=== PATIENT | female | born 1980 | race Caucasian/White ===

== ENCOUNTER → 2018-04-28 | Outpatient (CLI) | payer BC ==
--- NOTE | 2018-04-28 10:16 | US ---
EXAMINATION TYPE: US transvaginal DATE OF EXAM: 04/28/2018 COMPARISON: NONE CLINICAL HISTORY: N92.1 Metrorrhagia. Irregular menses, hx csections TECHNIQUE: Transvaginal (TV). Date of LMP: 04/22/2018, A1 EXAM MEASUREMENTS: Uterus: 7.9 x 5.1 x 3.7 cm Endometrial Stripe: 0.3 cm Right Ovary: 3.4 x 2.1 x 2.1 cm Left Ovary: 2.3 x 1.5 x 1.1 cm 1. Uterus: Anteverted Slightly heterogenous 2. Endometrium: wnl 3. Right Ovary: multiple follicles 4. Left Ovary: wnl 5. Bilateral Adnexa: wnl 6. Posterior cul-de-sac: no free fluid Cervix- nabothian cysts IMPRESSION: 1. Multiple small right ovarian follicles.
--- NOTE | 2018-04-29 09:58 | MM ---
Reason for exam: screening (asymptomatic). Last mammogram was performed 4 years and 10 months ago. History: Family history of breast cancer in aunt at age 60. Physical Findings: A clinical breast exam by your physician is recommended on an annual basis and results should be correlated with mammographic findings. MG 3D Screening Mammo W/Cad Bilateral CC and MLO view(s) were taken. Prior study comparison: June 15, 2013, mammogram, performed at [facility]. The breast tissue is extremely dense which could obscure a lesion on mammography. There are benign appearing round calcifications bilaterally. There is no discrete abnormality. ASSESSMENT: Incomplete: need additional imaging evaluation, BI-RAD 0 RECOMMENDATION: Ultrasound of the right breast. (palpable by patient) [facility] will attempt to contact patient to return for ultrasound.
== END | disposition home or self-care (01) ==
LOC: RADMAMWWP 09:17
PROVIDERS: ATTEND Obstetrics & Gynecology
DX: Z12.31 Encounter for screening mammogram for malignant neoplasm of breast (principal); N92.1 Excessive and frequent menstruation with irregular cycle
CPT/HCPCS: 76830; 77063; 77067

== ENCOUNTER → 2018-05-07 | Outpatient (CLI) | payer BC ==
--- NOTE | 2018-05-10 07:16 | USB ---
Reason for exam: additional evaluation requested from abnormal screening. History: Family history of breast cancer in aunt at age 60. Physical Findings: Nurse did not find any significant physical abnormalities on exam. US Breast Workup Limited RT Right limited breast ultrasound including focal area of concern, retroareolar and axilla demonstrates a 0.5 x 0.3 x 0.4cm cystic lesion at 9 o'clock and a 0.7 x 0.3 x 0.6cm cystic cluster at 12 o'clock. These results were verbally communicated with the patient and result sheet given to the patient on 05/07/18. ASSESSMENT: Probably benign, BI-RAD 3 RECOMMENDATION: Ultrasound of the right breast in 6 months.
== END | disposition home or self-care (01) ==
LOC: RADUSWWP 15:42
PROVIDERS: ATTEND Obstetrics & Gynecology
DX: R92.8 Other abnormal and inconclusive findings on diagnostic imaging of breast (principal)

== ENCOUNTER → 2018-11-15 | Outpatient (CLI) | payer BC ==
--- NOTE | 2018-11-16 08:38 | USB ---
Reason for exam: follow-up at short interval from prior study. History: Family history of breast cancer in aunt at age 60. Physical Findings: Nurse Summary: bilateral nodularity, prominence right breast 12 o'clock, all soft, movable (nurse ts). US Breast RT Right complete breast ultrasound includes all four quadrants, the retroareolar region and axilla. Finding demonstrates a 7 x 3 x 5mm cystic, benign lesion at 1 o'clock, a 6 x 4 x 4mm cystic cluster at 9 o'clock verus 5 x 4 x 4mm previously, stable to minimally larger, additional follow up can be performed, a 8 x 4 x 6mm oval, mixed lesion at 10 o'clock, possibly complicated cyst, fibroadenoma is also possible, 6 month follow up recommended and a 1.4 x 0.6cm lobulated heterogenous area at 1 o'clock, possible island of fibroglandular tissue, 6 month follow up recommended. These results were verbally communicated with the patient and result sheet given to the patient on 11/15/18. ASSESSMENT: Probably benign, BI-RAD 3 RECOMMENDATION: Follow-up diagnostic mammogram of both breasts in 6 months. Ultrasound of the right breast in 6 months.
== END | disposition home or self-care (01) ==
LOC: RADUSWWP 14:52
PROVIDERS: ATTEND Obstetrics & Gynecology
DX: R92.8 Other abnormal and inconclusive findings on diagnostic imaging of breast (principal)

== ENCOUNTER → 2019-06-03 | Outpatient (CLI) | payer BC ==
--- NOTE | 2019-06-03 10:44 | MM ---
Reason for exam: additional evaluation requested from prior study. Last mammogram was performed 1 year and 1 month ago. History: Family history of breast cancer in aunt at age 60. Physical Findings: Nurse did not find any significant physical abnormalities on exam. MG 3D Diag Mammo W/Cad AMADA Bilateral CC and MLO view(s) were taken. ML, spot compression CC, and spot compression MLO view(s) were taken of the left breast. Prior study comparison: April 28, 2018, bilateral MG 3d screening mammo w/cad. June 15, 2013, mammogram, performed at [facility]. The breast tissue is heterogeneously dense. This may lower the sensitivity of mammography. Focal asymmetry central 12-1 o'clock posterior left breast does not persist on spot 3D views. These results were verbally communicated with the patient and result sheet given to the patient on 06/03/19. ASSESSMENT: Incomplete: need additional imaging evaluation, BI-RAD 0 RECOMMENDATION: Ultrasound of the right breast. (as follow up from previous)
--- NOTE | 2019-06-03 10:47 | USB ---
Reason for exam: follow-up at short interval from prior study. History: Family history of breast cancer in aunt at age 60. US Breast RT Right complete breast ultrasound includes all four quadrants, the retroareolar region and axilla. Finding demonstrates a 8 x 4 x 6mm cystic, benign lesion at 1 o'clock, a 5 x 4 x 5mm oval, hypoechoic lesion with through transmission at 8 o'clock, 1 year follow up recommended, a 6 x 4 x 7mm mixed, stable lesion at 9 o'clock, a 4 x 2 x 4mm cystic lesion at 9 o'clock, possible cluster, stable, 1 year follow up recommended and a 14 x 6mm lobulated, stable lesion at 1 o'clock, stable, possible prominent lobule, 1 year follow up recommended. These results were verbally communicated with the patient and result sheet given to the patient on 06/03/19. ASSESSMENT: Probably benign, BI-RAD 3 RECOMMENDATION: Follow-up diagnostic mammogram of both breasts in 1 year. Ultrasound of the right breast in 1 year.
== END | disposition home or self-care (01) ==
LOC: RADMAMWWP 07:07
PROVIDERS: ATTEND Obstetrics & Gynecology
DX: R92.2 Inconclusive mammogram (principal)
CPT/HCPCS: 77062; 77066

== ENCOUNTER → 2020-01-24 | Outpatient (CLI) | payer BC ==
[2020-01-24 14:14] LABS: Basophils # (A) 0.1 k/uL (0-0.2); Basophils % (A) 1 %; Eosinophils # (A) 0.1 k/uL (0-0.7); Eosinophils % (A) 1 %; HCT 41.3 % (34.0-46.0); HGB 13.6 gm/dL (11.4-16.0); Lymphocytes % (A) 28 %; MCH 29.4 pg (25.0-35.0); MCV 88.8 fL (80.0-100.0); Mean Platelet Volume 7.2; Monocytes # (A) 0.3 k/uL (0-1.0); Monocytes % (A) 5 %; Neutrophils # (A) 4.4 k/uL (1.3-7.7); Neutrophils % (A) 63 %; Platelet Count 217 k/uL (150-450); RBC 4.65 m/uL (3.80-5.40); RDW 12.7 % (11.5-15.5)
[2020-01-24 19:06] LABS: African American GFR (CKD) 91.4 (60.0-200.0); Albumin 4.3 g/dL (3.80-4.90); Albumin/Globulin Ratio 1.95 (1.60-3.17); Anion Gap 7.8 mmol/L (4.00-12.00); BUN/Creat Ratio 15.56 Ratio (12.00-20.00); Calcium 9.6 mg/dL (8.7-10.3); Carbon Dioxide 27.2 mmol/L (21.6-31.8); Globulin 2.2 g/dL (1.6-3.3); Non-African American GFR(CKD) 78.9 (60.0-200.0); Potassium 4.1 mmol/L (3.5-5.5); Total Bilirubin 0.7 mg/dL (0.2-1.2); Total Protein 6.5 g/dL (6.2-8.2)
[2020-01-24 19:13] LABS: T4, Free (Free Thyroxine) 1.1 ng/dL (0.80-1.80)
[2020-01-24 19:18] LABS: Ferritin 15.3 ng/mL (10.0-291.0)
== END | disposition home or self-care (01) ==
LOC: LABWHC1 12:09
PROVIDERS: ATTEND Family Medicine
DX: D89.89 Other specified disorders involving the immune mechanism, not elsewhere classified (principal); E78.5 Hyperlipidemia, unspecified; E72.19 Other disorders of sulfur-bearing amino-acid metabolism; D64.9 Anemia, unspecified; E03.9 Hypothyroidism, unspecified; D50.9 Iron deficiency anemia, unspecified; R74.8 Abnormal levels of other serum enzymes; G62.9 Polyneuropathy, unspecified; E63.0 Essential fatty acid [EFA] deficiency; N28.9 Disorder of kidney and ureter, unspecified
CPT/HCPCS: 36415; 80053; 82306; 82728; 83090; 84439; 84443; 84481; 85025

== ENCOUNTER → 2020-05-18 | Outpatient (CLI) | payer BC ==
--- NOTE | 2020-05-18 10:08 | MM ---
Reason for exam: additional evaluation requested from prior study. Last mammogram was performed 11 months ago. History: Family history of breast cancer in aunt at age 60. Took hormonal contraceptives for 1 year beginning at age 17. Physical Findings: Nurse did not find any significant physical abnormalities on exam. MG 3D Diag Mammo W/Cad AMADA Bilateral CC and MLO view(s) were taken. Prior study comparison: June 03, 2019, bilateral MG 3d diag mammo w/cad AMADA. April 28, 2018, bilateral MG 3d screening mammo w/cad. The breast tissue is extremely dense which could obscure a lesion on mammography. Focal asymmetry upper posterior left breast, stable. No significant new findings when compared with previous films. These results were verbally communicated with the patient and result sheet given to the patient on 05/18/20. ASSESSMENT: Incomplete: need additional imaging evaluation, BI-RAD 0 RECOMMENDATION: Ultrasound of the right breast.
--- NOTE | 2020-05-18 10:12 | USB ---
Reason for exam: additional evaluation requested from abnormal screening. History: Family history of breast cancer in aunt at age 60. Took hormonal contraceptives for 1 year beginning at age 17. US Breast RT Technologist: Selin Ha Right complete breast ultrasound includes all four quadrants, the retroareolar region and axilla. Finding demonstrates a 0.7 x 0.4 x 0.3cm cystic lesion at 1 o'clock, a 0.4 x 0.5 x 0.2cm cystic lesion at 1 o'clock, a 1.5 x 1.3 x 0.8cm lesion at 1 o'clock correlates with prior, stable, a 0.5 x 0.5 x 0.3cm cystic lesion at 8 o'clock, a 0.5 x 0.5 x 0.3cm lesion correlates with prior, stable, a 0.7 x 0.6 x 0.4cm cystic lesion at 9 o'clock and a 0.6 x 0.6 x 0.4cm lesion correlates with prior, stable at 9 o'clock. These results were verbally communicated with the patient and result sheet given to the patient on 05/18/20. ASSESSMENT: Benign, BI-RAD 2 RECOMMENDATION: Routine screening mammogram of both breasts in 1 year. Manage patient on a clinical basis.
== END | disposition home or self-care (01) ==
LOC: RADUSWWP 07:41
PROVIDERS: ATTEND Obstetrics & Gynecology
DX: R92.8 Other abnormal and inconclusive findings on diagnostic imaging of breast (principal)
CPT/HCPCS: 77062; 77066

== ENCOUNTER → 2021-03-27 | Outpatient (CLI) | payer BC ==
--- NOTE | 2021-03-27 08:44 | MM ---
Reason for exam: clinical finding. Last mammogram was performed 10 months ago. History: Family history of breast cancer in aunt at age 60. Took hormonal contraceptives for 1 year beginning at age 17. Indicated problem(s): lump or thickening in the left breast. Physical Findings: Nurse Summary: 2-3cm nodule in the left breast at 1-2 o'clock (nurse db). MG 3D Diag Mammo W/Cad AMADA Bilateral CC and MLO view(s) were taken. Prior study comparison: May 18, 2020, bilateral MG 3d diag mammo w/cad AMADA. June 03, 2019, bilateral MG 3d diag mammo w/cad AMADA. April 28, 2018, bilateral MG 3d screening mammo w/cad. The breast tissue is extremely dense which could obscure a lesion on mammography. Finding: There is a typically benign 26 mm equal density (isodense), circumscribed round mass located 8 cm from the nipple in the upper outer quadrant, posterior position near palpable marker. No significant changes in finding since May 18, 2020, June 03, 2019, and April 28, 2018. These results were verbally communicated with the patient and result sheet given to the patient on 03/27/21. ASSESSMENT: Incomplete: need additional imaging evaluation, BI-RAD 0 RECOMMENDATION: Ultrasound of the left breast.
--- NOTE | 2021-03-27 08:45 | USB ---
Reason for exam: additional evaluation requested from abnormal screening. History: Family history of breast cancer in aunt at age 60. Took hormonal contraceptives for 1 year beginning at age 17. US Breast Limited LT Left limited breast ultrasound including focal area of concern, retroareolar and axilla demonstrates a 1.6 x 1.1 x 0.8cm cystic cluster at 1 o'clock and a 3.2 x 2.8 x 1.8cm cystic lesion at 2 o'clock. These results were verbally communicated with the patient and result sheet given to the patient on 03/27/21. ASSESSMENT: Benign, BI-RAD 2 RECOMMENDATION: Routine screening mammogram of both breasts in 1 year.
== END | disposition home or self-care (01) ==
LOC: RADMAMWWP 07:08
PROVIDERS: ATTEND Obstetrics & Gynecology
DX: R92.2 Inconclusive mammogram (principal); Z80.3 Family history of malignant neoplasm of breast
CPT/HCPCS: 77062; 77066

== ENCOUNTER → 2022-11-11 | Outpatient (CLI) | payer BC | END | disposition home or self-care (01) | LOC: LABWHC1 13:47 | PROVIDERS: ATTEND Family Medicine | DX: R00.2 Palpitations (principal); R00.1 Bradycardia, unspecified | CPT/HCPCS: 93005 ==

== ENCOUNTER → 2022-11-25 | Outpatient (CLI) | payer BC ==
--- NOTE | 2022-12-08 17:08 | P.HOLTER ---
48 hour Holter monitor shows sinus mechanism with normal heart rates No arrhythmias during any of her symptoms
--- NOTE | 2022-12-10 08:52 | HM ---
48 hour Holter monitor shows sinus mechanism with normal heart rates No arrhythmias during any of her symptoms MTDD
== END | disposition home or self-care (01) ==
LOC: RADECHMAIN 12:00
PROVIDERS: ATTEND Family Medicine
DX: R00.2 Palpitations (principal)
CPT/HCPCS: 93225; 93226

== ENCOUNTER → 2023-04-17 | Outpatient (CLI) | payer BC ==
[2023-04-17 15:35] LABS: Basophils # (A) 0.05 X 10*3/uL (0.00-0.10); Basophils % (A) 0.9 %; Eosinophils % (A) 1.9 %; HCT 41.8 % (37.2-46.3); HGB 13.9 g/dL (12.0-15.0); Immature Grans, Automated 0 %; Lymphocytes # (A) 2.01 X 10*3/uL (0.90-5.00); Lymphocytes % (A) 38.1 %; MCH 29.3 pg (27.0-32.0); MCHC 33.3 g/dL (32.0-37.0); MCV 88.2 FL (80.0-97.0); Mean Platelet Volume 10.1 FL (9.5-12.2); Monocytes # (A) 0.44 X 10*3/uL (0.20-1.00); Monocytes % (A) 8.3 %; NRBC Per 100 WBC 0 X 10*3/uL (0.00-0.01); Neutrophils # (A) 2.68 X 10*3/uL (1.80-7.70); Neutrophils % (A) 50.8 %; Platelet Count 288 X 10*3/uL (140-440); RBC 4.74 X 10*6/uL (4.10-5.20); RDW 12.9 % (11.5-14.5); WBC 5.28 X 10*3/uL (4.50-10.00)
[2023-04-17 15:51] LABS: ALT 26 U/L (8-44); AST 18 U/L (13-35)
== END | disposition home or self-care (01) ==
LOC: LABWHC1 09:03
PROVIDERS: ATTEND Dermatology
DX: B35.1 Tinea unguium (principal)
CPT/HCPCS: 36415; 84450; 84460; 85025

== ENCOUNTER 2023-06-06 05:33 | Emergency (ER) | payer BC ==
[2023-06-06 06:04] VITALS: TEMP 98.8
[2023-06-06] MEDS ORDERED: PROPARACAINE 0.5% OPHTH DROPS 15 ML BTL BOTH EYES STA (06:14)
[2023-06-06] MEDS ORDERED: FLUORESCEIN STRIPS 1 MG STRIP BOTH EYES ONE (06:14)
--- NOTE | 2023-06-06 06:52 | ED ---
General Adult HPI - General Chief complaint: Eye Problems Stated complaint: Left eye injury Source: patient Mode of arrival: ambulatory Limitations: no limitations - History of Present Illness Initial comments: Quick note: patient thinks there must have been a tear in her contact but she had pain in her left eye when she went to take it out. Since then it has become pretty swollen and painful. Feels it is blurry from the tearing. She is up to date on tetanus vaccination. HPI: see above no changes - Related Data Previous Rx's Medication Instructions Recorded Ciprofloxacin Ophth Soln [Cipro 1 drops LEFT EYE Q6H 5 Days #5 ml 06/06/23 0.3% Ophth Soln] Allergies Allergy/AdvReac Type Severity Reaction Status Date / Time cephalexin [From Keflex] Allergy Rash/Hives Verified 06/06/23 05:56 Review of Systems ROS Statement: Those systems with pertinent positive or pertinent negative responses have been documented in the HPI. ROS Other: All systems not noted in ROS Statement are negative. Past Medical History Past Medical History: Thyroid Disorder History of Any Multi-Drug Resistant Organisms: None Reported Past Surgical History: Section, Orthopedic Surgery Additional Past Surgical History / Comment(s): knee Past Psychological History: Depression Smoking Status: Never smoker Past Alcohol Use History: Rare Past Drug Use History: None Reported General Exam Limitations: no limitations General appearance: alert, in no apparent distress Head exam: Present: atraumatic Expanded Eyelids: Swelling: Left Pupils: Regular, Round: Bilateral Sclera/Conjunctival: Injection: Left Visual acuity (R) = 20/: 25 Visual acuity (L) = 20/: 70 With correction: No ENT exam: Present: normal exam, mucous membranes moist Neck exam: Present: normal inspection, full ROM. Absent: tenderness Respiratory exam: Absent: respiratory distress Course Vital Signs 06/06/23 05:57 Temperature 98.8 F Pulse Rate 66 Respiratory 17 Rate Blood Pressure 131/75 O2 Sat by Pulse 97 Oximetry Medical Decision Making - Medical Decision Making Was pt. sent in by a medical professional or institution (Dr. PA, STAFF PHARMACIST, urgent care, hospital, or custodial...) When possible be specific @ -No Did you speak to anyone other than the patient for history (EMS, parent, family, police, friend...)? What history was obtained from this source @ -No Did you review nursing and triage notes (agree or disagree)? Why? @ -I reviewed and agree with nursing and triage notes Were old charts reviewed (outside hosp., previous admission, EMS record, old EKG, old radiological studies, urgent care reports/EKG's, custodial records)? Report findings @ -No old charts were reviewed Differential Diagnosis (chest pain, altered mental status, abdominal pain women, abdominal pain men, vaginal bleeding, weakness, fever, dyspnea, syncope, headache, dizziness, GI bleed, back pain, seizure, CVA, palpatations, mental health)? @ -corneal abrasion, corneal ulcer, globe rupture, foreign body, EKG interpreted by me (3pts min.). @ -none X-rays interpreted by me (1pt min.). @ -None done CT interpreted by me (1pt min.). @ -None done U/S interpreted by me (1pt. min.). @ -None done What testing was considered but not performed or refused? (CT, X-rays, U/S, labs)? Why? @ -None What meds were considered but not given or refused? Why? @ -None Did you discuss the management of the patient with other professionals (professionals i.e. , PA, STAFF PHARMACIST, lab, RT, psych nurse, social media community manager, cost controller, teacher, landing signal officer, counseling case manager)? Give summary @ -No, ophthalmology not available Was smoking cessation discussed for >3mins.? @ -No Was critical care preformed (if so, how long)? @ -No Were there social determinants of health that impacted care today? How? (Homelessness, low income, unemployed, alcoholism, drug addiction, transportation, low edu. Level, literacy, decrease access to med. care, assisted, rehab)? @ -No Was there de-escalation of care discussed even if they declined (Discuss DNR or withdrawal of care, Hospice)? DNR status @ -No What co-morbidities impacted this encounter? (DM, HTN, Smoking, COPD, CAD, Cancer, CVA, ARF, Chemo, Hep., AIDS, mental health diagnosis, sleep apnea, morbid obesity)? @ -None Was patient admitted / discharged? Hospital course, mention meds given and route, prescriptions, significant lab abnormalities, going to OR and other pertinent info. @ -Patient was seen and advanced triage room. Visual acuity was completed, see physical exam. Physical exam revealed no discoloration of the left eye. Proparacaine was applied to the left eye which significantly helped with pain. Fluorescein stain and Wood's lamp was used to visualize the eye and there is a small corneal abrasion in the center of the eye. Negative Isai sign. Undiagnosed new problem with uncertain prognosis? @ -No Drug Therapy requiring intensive monitoring for toxicity (Heparin, Nitro, Insulin, Cardizem)? @ -No Were any procedures done? @ -No Diagnosis/symptom? @ -corneal abrasion Acute, or Chronic, or Acute on Chronic? @ -acute Uncomplicated (without systemic symptoms) or Complicated (systemic symptoms)? @ -Uncomplicated Side effects of treatment? @ -No Exacerbation, Progression, or Severe Exacerbation? @ -No Poses a threat to life or bodily function? How? (Chest pain, [place], [place], pneumonia, PE, COPD, DKA, ARF, appy, cholecystitis, CVA, Diverticulitis, Homicidal, Suicidal, threat to staff... and all critical care pts) @ -No Disposition Clinical Impression: Corneal abrasion, left Disposition: HOME SELF-CARE Condition: Good Instructions (If sedation given, give patient instructions): Eye Foreign Body (ED), Corneal Abrasion (ED) Additional Instructions: DO NOT use contacts until symptoms resolve. Apply 2 drops to the left eye 4 times per day for 5 days. Follow up with opthalmology or optometry thursday morning. If symptoms worsen return to the ED. Prescriptions: Ciprofloxacin Ophth Soln [Cipro 0.3% Ophth Soln] 1 drops LEFT EYE Q6H 5 Days #5 ml Is patient prescribed a controlled substance at d/c from ED?: No Referrals: Jose A Dumont MD [Primary Care Provider] - 1-2 days Time of Disposition: 07:47
[2023-06-06] MEDS ORDERED: CIPROFLOXACIN 0.3% OPHTH SOLN 5 ML BTL LEFT EYE STA (07:45)
[2023-06-06 08:50] VITALS: BP 116/74; PULSE 72; RESP 18
== END 2023-06-06 08:39 | disposition home or self-care (01) ==
LOC: EC 05:33
DX: S05.02XA Injury of conjunctiva and corneal abrasion without foreign body, left eye, initial encounter (principal); Z88.8 Allergy status to other drugs, medicaments and biological substances; Z86.59 Personal history of other mental and behavioral disorders; X58.XXXA Exposure to other specified factors, initial encounter
CPT/HCPCS: 99282

== ENCOUNTER → 2024-07-05 | Outpatient (CLI) | payer BC ==
--- NOTE | 2024-07-05 09:02 | MM ---
Reason for Exam: Screening (asymptomatic). Last mammogram was performed 1 year(s) and 9 month(s) ago. Patient History: Menarche at age 12. First Full-Term at age 28. Late child-bearing (after 28). Patient has history of breast feeding. Hormonal Contraceptives for 1 year from age 17 until age 18. Maternal aunt had breast cancer, age 60. Paternal grandmother had breast cancer, age 66. Last menstrual period: 07/02/2024 Risk Values: Grace 5 year model risk: 1.1%. NCI Lifetime model risk: 11.8%. Prior Study Comparison: 05/18/2020 Bilateral Diagnostic Mammogram, [facility]. 03/27/2021 Bilateral Diagnostic Mammogram, [facility]. 10/06/2022 Bilateral MG 3D diag mammo w/cad AMADA, [facility]. Tissue Density: The breasts are extremely dense, which lowers the sensitivity of mammography. Findings: Analyzed By CAD. Circumscribed mass in the posterior upper-outer aspect left breast shows continued decrease in size from older studies consistent with resolving thin-walled cyst seen on prior ultrasounds. There is no suspicious group of microcalcifications or new suspicious mass in either breast. Overall Assessment: Benign, BI-RAD 2 Management: Screening Mammogram of both breasts in 1 year. Some advise bilateral annual ultrasound surveillance in patients with background extremely dense tissue. Patient should continue monthly self-breast exams. A clinical breast exam by your physician is recommended on an annual basis. This exam should not preclude additional follow-up of suspicious palpable abnormalities. Note on Grace scores and lifetime risk: 1. A Grace score greater than 3% is considered moderate risk. If this is the case, consider specialist referral to assess eligibility for a risk reducing agent. 2. If overall lifetime risk for the development of breast cancer is 20% or higher, the patient may qualify for future screening with alternating mammogram and breast MRI. [facility], , 07/05/2024 8:58 AM. Electronically signed and approved by: Payam Mccoy M.D.
== END | disposition home or self-care (01) ==
LOC: RADMAMWWP 07:59
PROVIDERS: ATTEND Obstetrics & Gynecology
DX: Z12.31 Encounter for screening mammogram for malignant neoplasm of breast (principal); R92.343 Mammographic extreme density, bilateral breasts; Z80.3 Family history of malignant neoplasm of breast; Z92.0 Personal history of contraception; Z78.0 Asymptomatic menopausal state
CPT/HCPCS: 77063; 77067